=== PATIENT | male | born 2000 | race Caucasian/White ===

== ENCOUNTER 2019-11-30 03:40 | Emergency (ER) | payer BC, OTHER ==
[2019-11-30 03:55] VITALS: O2SAT 99
[2019-11-30] MEDS ORDERED: Hydromorphone 1 mg/ml Ampule IV ONE (03:55)
[2019-11-30] MEDS ORDERED: Hydromorphone 1 mg/ml Ampule ONE (03:56)
[2019-11-30] MEDS ORDERED: Amidate 20 MG/10 ML IV ONE (03:56)
[2019-11-30] MEDS ORDERED: Sodium Chloride 0.9% 1000 ML 1,000 ML ONE (03:57)
[2019-11-30] MEDS ORDERED: Sodium Chloride 0.9% 1000 ML 1,000 ML IV STA (03:57)
--- NOTE | 2019-11-30 04:33 | ERPHSYRPT ---
- History of Present Illness Time Seen by Provider: 11/30/19 04:00 Source: patient Exam Limitations: no limitations Patient Subjective Stated Complaint: pt states he was wrestling with friends and dislocated his lt shoulder Triage Nursing Assessment: pt alert and oriented, answers questions approp. pt ambulatory with steady gait noted. respirations nonlabored with lungs cta. deformity noted to lt shoulder cap refill and radial pulse wnl. Physician History: ppatient is a 18-year-old male who had been drinking with some friends and they were apparently wrestling outside this morning when he dislocated his left shoulder. He denies any other injury he also reports frequent dislocations of both patella. Occurred: just prior to arrival Method of Injury: sports injury Quality: constant Severity of Pain-Max: moderate Severity of Pain-Current: moderate Extremities Pain Location: shoulder: left (apparent anterior dislocation) Modifying Factors: Improves With: movement Allergies/Adverse Reactions: No Known Drug Allergies Allergy (Verified 11/30/19 03:54) Home Medications: No Home Meds [No Home Meds] 1 [facility] 09/06/14 [History] Hx Tetanus, Diphtheria Vaccination/Date Given: Yes Hx Influenza Vaccination/Date Given: No Hx Pneumococcal Vaccination/Date Given: No Immunizations Up to Date: Yes - Review of Systems Constitutional: No Fever, No Chills Eyes: No Symptoms Ears, Nose, & Throat: No Symptoms Respiratory: No Cough, No Dyspnea Cardiac: No Chest Pain, No Edema, No Syncope Abdominal/Gastrointestinal: No Abdominal Pain, No Nausea, No Vomiting, No Diarrhea Genitourinary Symptoms: No Dysuria Musculoskeletal: Deformity (left shoulder), Injury, No Back Pain, No Neck Pain Skin: No Rash Neurological: No Dizziness, No Focal Weakness, No Sensory Changes Psychological: No Symptoms Endocrine: No Symptoms All Other Systems: Reviewed and Negative - Past Medical History Pertinent Past Medical History: No Neurological History: No Pertinent History ENT History: No Pertinent History Cardiac History: No Pertinent History Respiratory History: No Pertinent History Endocrine Medical History: No Pertinent History Musculoskeletal History: No Pertinent History GI Medical History: No Pertinent History History: No Pertinent History Psycho-Social History: No Pertinent History Male Reproductive Disorders: No Pertinent History - Past Surgical History Past Surgical History: Yes Neuro Surgical History: No Pertinent History Cardiac: No Pertinent History Respiratory: No Pertinent History Gastrointestinal: No Pertinent History Genitourinary: No Pertinent History Musculoskeletal: No Pertinent History Male Surgical History: No Pertinent History Other Surgical History: t & a - Social History Smoking Status: Smoker, status unknown Exposure to second hand smoke: No Drug Use: none Patient Lives Alone: No - Nursing Vital Signs Nursing Vital Signs: Initial Vital Signs Temperature 98.7 F 11/30/19 03:46 Pulse Rate 74 11/30/19 03:46 Respiratory Rate 16 11/30/19 03:46 Blood Pressure 120/93 11/30/19 03:46 O2 Sat by Pulse Oximetry 99 11/30/19 03:46 Pain Scale Pain Intensity 9 - Physical Exam General Appearance: alert Eyes, Ears, Nose, Throat Exam: moist mucous membranes Neck Exam: non-tender, supple Cardiovascular/Respiratory Exam: chest non-tender, normal breath sounds, regular rate/rhythm, no respiratory distress Abdominal Exam: non-tender, No guarding Back Exam: normal inspection, No vertebral tenderness Shoulder Exam: deformity, limited ROM Elbow/Forearm Exam: normal inspection Wrist Exam: normal inspection Hand Exam: normal inspection Neuro/Tendon Exam: normal sensation, normal motor functions Mental Status Exam: alert, oriented x 3, cooperative Skin Exam: normal color, warm, dry SpO2 Interpretation: normal SpO2: 99 O2 Delivery: Room Air Procedures - Joint Reduction Timeout: Performed Joint Reduction Site: Left, shoulder Conscious Sedation: Yes Reduction Attempts: 1 Pre-Procedure Neurovascular Exam: neurovascular intact Post Procedure Neurovascular Exam: neurovascular intact Post Joint Reduction Film: joint reduced Progress: the patient presented with an anterior dislocation of the shoulder he was given 1 mg of Dilaudid and 8 mg of etomidate and with traction countertraction the left shoulder was reduced - Radiology Exams Left Shoulder X-ray Interpretation: Interpreted by me, Other (ppre-and postreduction films were done and show successful reduction of the shoulder) Ordered Tests: Active Orders 24 hr Category Date Time Status SHOULDER Stat Exams 11/30/19 Ordered Medication Summary Generic Name Dose Route Start Last Admin Trade Name Freq PRN Reason Stop Dose Admin Sodium Chloride 1,000 mls @ 999 mls/hr 11/30/19 03:57 11/30/19 04:04 Sodium Chloride 0.9% 1000 Ml IV 11/30/19 04:57 999 mls/hr .Q1H1M STA Administration Discontinued Medications Generic Name Dose Route Start Last Admin Trade Name Freq PRN Reason Stop Dose Admin Etomidate 20 mg 11/30/19 03:56 Amidate 20 Mg/10 Ml IV 11/30/19 03:57 STAT ONE Hydromorphone HCl 1 mg 11/30/19 03:55 11/30/19 04:05 Hydromorphone 1 Mg/Ml Ampule IV 11/30/19 03:56 1 mg STAT ONE Administration Hydromorphone HCl Confirm 11/30/19 03:56 Hydromorphone 1 Mg/Ml Ampule Administered 11/30/19 03:57 Dose 1 mg .ROUTE .STK-MED ONE Sodium Chloride Confirm 11/30/19 03:57 Sodium Chloride 0.9% 1000 Ml Administered 11/30/19 03:58 Dose 1,000 mls @ ud .ROUTE .STK-MED ONE - Progress Progress: improved - Departure Departure Disposition: Home Clinical Impression: Anterior dislocation of left shoulder Condition: Stable Critical Care Time: No Referrals: ANDREIA GRIFFIN FNP [Primary Care Provider] - Instructions: Shoulder Dislocation (DC) Additional Instructions: patient will be instructed to followup with the orthopedic clinic on Monday or next week. he will be instructed to wear his sling and swath until he sees the orthopedist.
[2019-11-30 05:59] VITALS: BP 117/62; PULSE 81
--- NOTE | 2019-11-30 07:44 | XRAY ---
Indication: Dislocation. Comparison: None AP and scapular Y view of the left shoulder demonstrates anterior inferior humeral head dislocation. No other bony, articular, or soft tissue abnormalities.
--- NOTE | 2019-11-30 07:45 | XRAY ---
Indication: Post reduction. Comparison: Taken earlier in the day. 2 portable AP views of the left shoulder demonstrates successful reduction of previous humeral head dislocation. No other bony, articular, or soft tissue abnormalities.
== END 2019-11-30 05:58 | disposition home or self-care (01) ==
LOC: ED 03:40
DX: S43.005A Unspecified dislocation of left shoulder joint, initial encounter (principal); X50.9XXA Other and unspecified overexertion or strenuous movements or postures, initial encounter; X50.0XXA Overexertion from strenuous movement or load, initial encounter; Y93.72 Activity, wrestling; Y92.9 Unspecified place or not applicable
CPT/HCPCS: 23650; 73030; 96374; 96375; 99284; J1170

== ENCOUNTER 2020-03-28 00:36 | Emergency (ER) | payer OTHER ==
[2020-03-28 00:53] VITALS: O2SAT 99
[2020-03-28] MEDS ORDERED: Hydromorphone 1 mg/ml Ampule IV ONE (00:57)
[2020-03-28] MEDS ORDERED: Amidate 20 MG/10 ML IV STA (00:58)
[2020-03-28] MEDS ORDERED: Hydromorphone 1 mg/ml Ampule ONE (01:27)
[2020-03-28 02:04] VITALS: PULSE 80
--- NOTE | 2020-03-28 02:04 | ERPHSYRPT ---
- History of Present Illness Time Seen by Provider: 03/28/20 00:55 Source: patient Exam Limitations: no limitations Patient Subjective Stated Complaint: pt states while wrestling around and boxing with friends, he dislocated his lt shoulder. Triage Nursing Assessment: pt alert and oriented, answers quesitons approp. pt ambulatory with steady gait noted. respirations nonlabored with lungs cta. lt radial pulse and cap refill wnl. pt moves lt hand without idff. Physician History: Patient is a 19-year-old male who has a burning dislocation of the left shoulder especially when he engages in boxing. Occurred: just prior to arrival Method of Injury: sports injury Quality: constant, throbbing Severity of Pain-Max: moderate Severity of Pain-Current: moderate Extremities Pain Location: shoulder: left (Obvious deformity and dislocation) Modifying Factors: Improves With: movement, pain medication Allergies/Adverse Reactions: No Known Drug Allergies Allergy (Verified 03/28/20 00:53) Home Medications: No Home Meds [No Home Meds] 1 [facility] 09/06/14 [History] Hx Tetanus, Diphtheria Vaccination/Date Given: Yes Hx Influenza Vaccination/Date Given: No Hx Pneumococcal Vaccination/Date Given: No Immunizations Up to Date: Yes Travel Risk - International Travel If Yes where:: [facility] - Coronavirus Screening Has patient experienced Coronavirus symptoms: No - Review of Systems Constitutional: No Fever, No Chills Eyes: No Symptoms Ears, Nose, & Throat: No Symptoms Respiratory: No Cough, No Dyspnea Cardiac: No Chest Pain, No Edema, No Syncope Abdominal/Gastrointestinal: No Abdominal Pain, No Nausea, No Vomiting, No Diarrhea Genitourinary Symptoms: No Dysuria Musculoskeletal: Deformity, Joint Pain, No Back Pain, No Neck Pain Skin: No Rash Neurological: No Dizziness, No Focal Weakness, No Sensory Changes Psychological: No Symptoms Endocrine: No Symptoms All Other Systems: Reviewed and Negative - Past Medical History Pertinent Past Medical History: No Neurological History: No Pertinent History ENT History: No Pertinent History Cardiac History: No Pertinent History Respiratory History: No Pertinent History Endocrine Medical History: No Pertinent History Musculoskeletal History: No Pertinent History GI Medical History: No Pertinent History History: No Pertinent History Psycho-Social History: No Pertinent History Male Reproductive Disorders: No Pertinent History - Past Surgical History Past Surgical History: Yes Neuro Surgical History: No Pertinent History Cardiac: No Pertinent History Respiratory: No Pertinent History Gastrointestinal: No Pertinent History Genitourinary: No Pertinent History Musculoskeletal: No Pertinent History Male Surgical History: No Pertinent History Other Surgical History: t & a - Social History Smoking Status: Current every day smoker How long have you smoked: 4 yrs Exposure to second hand smoke: Yes Drug Use: marijuana Patient Lives Alone: No - Nursing Vital Signs Nursing Vital Signs: Initial Vital Signs Temperature 97.4 F 03/28/20 00:43 Pulse Rate 95 H 03/28/20 00:43 Respiratory Rate 18 03/28/20 00:43 Blood Pressure 157/89 03/28/20 00:43 O2 Sat by Pulse Oximetry 99 03/28/20 00:43 Pain Scale Pain Intensity 7 - Physical Exam General Appearance: alert Eyes, Ears, Nose, Throat Exam: moist mucous membranes Neck Exam: non-tender, supple Cardiovascular/Respiratory Exam: chest non-tender, normal breath sounds, regular rate/rhythm, no respiratory distress Abdominal Exam: non-tender, No guarding Back Exam: normal inspection, No vertebral tenderness Shoulder Exam: bone tenderness, deformity, soft tissue tenderness Elbow/Forearm Exam: normal inspection Wrist Exam: normal inspection Hand Exam: normal inspection Neuro/Tendon Exam: normal sensation, normal motor functions Mental Status Exam: alert, oriented x 3, cooperative Skin Exam: normal color, warm, dry SpO2: 99 - Radiology Exams Left Shoulder X-ray Interpretation: Interpreted by me, Other (Initial x-rays showed an obvious that there is a patient post reduction film confirmed reduction) Ordered Tests: Active Orders 24 hr Category Date Time Status SHOULDER Stat Exams 03/28/20 Ordered Medication Summary Discontinued Medications Generic Name Dose Route Start Last Admin Trade Name Freq PRN Reason Stop Dose Admin Etomidate 20 mg 03/28/20 00:58 Amidate 20 Mg/10 Ml IV 03/28/20 00:59 ONCE STA Hydromorphone HCl 1 mg 03/28/20 00:57 03/28/20 01:28 Hydromorphone 1 Mg/Ml Ampule IV 03/28/20 00:58 1 mg STAT ONE Administration Hydromorphone HCl Confirm 03/28/20 01:27 Hydromorphone 1 Mg/Ml Ampule Administered 03/28/20 01:28 Dose 1 mg .ROUTE .STK-MED ONE - Progress Progress: improved - Departure Departure Disposition: Home Clinical Impression: Anterior shoulder dislocation Condition: Stable Critical Care Time: No Referrals: ANDREIA GRIFFIN FNP [Primary Care Provider] - Instructions: Shoulder Dislocation (DC)
[2020-03-28 03:08] VITALS: BP 134/87
--- NOTE | 2020-03-28 07:21 | XRAY ---
Indication: Postreduction. Comparison: Taken earlier in the day. Single AP left shoulder demonstrates successful reduction of previous humeral head dislocation. No other bony, articular, or soft tissue abnormalities.
--- NOTE | 2020-03-28 07:21 | XRAY ---
Indication: Pain following boxing injury. Comparison: November 30, 2019. 3 view left shoulder demonstrates anterior inferior humeral head dislocation. No other bony, articular, or soft tissue abnormalities.
== END 2020-03-28 02:57 | disposition home or self-care (01) ==
LOC: ED 00:36
DX: S43.005A Unspecified dislocation of left shoulder joint, initial encounter (principal); X50.0XXA Overexertion from strenuous movement or load, initial encounter; Y93.72 Activity, wrestling; Y92.89 Other specified places as the place of occurrence of the external cause; Z72.0 Tobacco use; F12.90 Cannabis use, unspecified, uncomplicated
CPT/HCPCS: 73030; 94770; 94799; 96374; 96375; 99284; J1170; L3650